=== PATIENT | male | born 1950 | race Two or more races ===

== ENCOUNTER → 2016-12-18 | Outpatient (CLI) | payer MEDICARE ==
[~2016-12-18] MED LIST: GLIP10TA13 PO; IOHEXOL 240 MG/ML 50ML VIAL. PO ONE; IOHEXOL 300 MG/ML 75 ML VIAL IV ONE; LISI1TAB5 PO; METF10002 PO
--- NOTE | 2016-12-18 13:06 | RAD ---
Exam performed :CT scan chest, abdomen and pelvis with with contrast. Indication: ] Iron deficiency anemia Date of exam: 12/18/16. Comparison;none available Technique: Helical sections of the chest , abdomen and pelvis were obtained during Intravenous administration of 75 cc of Omnipaque 300.. Oral contrast was given to a CT abdomen pelvis portion of the study. Sagittal and coronal reformatted images were obtained and reviewed. CT chest findings: The heart, hilar and mediastinal structures appear unremarkable. Intrathoracic great vessels appear normal in course and caliber. Evidence of pathologic lymphadenopathy is not identified. The lungs are clear. No pleural fluid or pleural thickening is identified. No pleural calcification is noted. Structures at the thoracic inlet including both lobes of the thyroid gland appear normal. No dominant lymphadenopathy is seen in the neck or axilla. As visualized, the osseous structures appear unremarkable. Limited evaluation of the upper abdominal structures is essentially unremarkable Impression: No definite abnormality seen in the CT scan chest. End impression CT abdomen findings: The lung bases appear essentially clear. The visualized heart is normal. The liver, spleen ,gall bladder and pancreas appears unremarkable. Both adrenal glands and bilateral kidneys appear normal with symmetric excretion of contrast via both kidneys. Right renal cysts including a dominant approximately 9 cm cyst in the right superior renal pole. The small bowel loops appear nondilated and unremarkable. There is no retroperitoneal lymphadenopathy or mass lesions. No bowel related inflammatory stranding is noted. Visualized presumed appendix appears normal. No obvious stranding is seen in the pericecal region. CT pelvis findings: The pelvic bowel loops are nondilated and unremarkable. Sigmoid diverticulosis without acute diverticulitis. The urinary bladder is well distended and normal . Prostate gland, seminal vesicles and the rectum appear normal. No free or focal fluid collections or pelvic lymphadenopathy seen.Interrogation of bone windows demonstrates no obvious bony abnormality. Sagittal and coronal reformatted images were obtained and reviewed which demonstrate no additional findings. Impression abdomen and pelvis : 1. No acute intra-abdominal or pelvic process is detected. 2. Right renal cysts. 3. Sigmoid diverticulosis without acute diverticulitis PQRS Compliance Statement: One or more of the following individualized dose reduction techniques were utilized for this examination: 1. Automated exposure control 2. Adjustment of the mA and/or kV according to patient size 3. Use of iterative reconstruction technique
== END | disposition home or self-care (01) ==
LOC: CT 09:04
PROVIDERS: ATTEND Internal Medicine Hematology & Oncology
DX: I50.9 Heart failure, unspecified (principal)
CPT/HCPCS: 71260; 74177; Q9966; Q9967